=== PATIENT | male | born 1945 | race Caucasian/White ===

== ENCOUNTER → 2019-10-11 09:34 | Outpatient (CLI) | payer MEDICARE, SELFPAY ==
--- NOTE | 2019-10-11 09:42 | CDU_ITS ---
Reason For Study: Stenosis Rt. Velocities/BP Lt. Velocities/BP Prox CCA 130/19 cm/sec. Prox CCA 127/25 cm/sec. Mid CCA 111/20 cm/sec. Mid CCA 116/29 cm/sec. Dist CCA 97/23 cm/sec. Dist CCA 107/27 cm/sec. Prox ICA 80/23 cm/sec. Prox ICA 88/28 cm/sec. Mid ICA 126/40 cm/sec. Mid ICA 95/32 cm/sec. Dist ICA 123/39 cm/sec. Dist ICA 115/36 cm/sec. Rt. ICA/CCA = 1.1. Lt. ICA/CCA = 1.0. Prox ECA 140/7 cm/sec. Prox ECA 139/13 cm/sec. Rt. Vert. 71/16 cm/sec. Lt. Vert. 88/20 cm/sec. Right Extracranial There is intimal thickening but no significant atherosclerotic plaque noted in the right common carotid artery. There is heterogeneous, smooth atherosclerotic plaque noted in the right internal carotid artery. The right internal carotid artery is very tortuous. There is intimal thickening but no significant atherosclerotic plaque noted in the right external carotid artery. Antegrade flow is noted in the right vertebral artery. Left Extracranial There is intimal thickening but no significant atherosclerotic plaque noted in the left common carotid artery. There is heterogeneous, smooth atherosclerotic plaque noted in the left internal carotid artery. There is intimal thickening but no significant atherosclerotic plaque noted in the left external carotid artery. Antegrade flow is noted in the left vertebral artery. Procedure Carotid Duplex [id number]. Exam performed in department. Interpretation Summary Minimal smooth plaque at the proximal right internal carotid artery Very tortuous right internal carotid artery which may affect flow velocity and estimation of stenosis. 50-69% stenosis right internal carotid, (likely closer to 50%) Minimal smooth plaque at the proximal left internal carotid <50% stenosis left internal carotid <50% stenosis left external carotid Patent, antegrade, <50% stenosis bilateral vertebrals. Ordering Physician: Jorden Martinez Referring Physician: Jorden Martinez Performed By: Olivia Reeder, TIFFANY, RVT
== END ==
PROVIDERS: PCP Internal Medicine; Referring Provider Ophthalmology; Visit Provider Ophthalmology
DX: G45.3 Amaurosis fugax (principal)
CPT/HCPCS: 93880

== ENCOUNTER → 2023-05-18 | Outpatient (CLI) | payer MEDICARE, SELFPAY ==
--- NOTE | 2023-05-18 | PROSBIL_PTH ---
PATIENT: ROBERT ROSARIO LOC: [facility] U#:[id number] AGE/SX: 77/M ROOM: RE05/18/[address]: Dr. Paxton Otero MD : 1945 BED: DIS: 05/18/2023 SPEC #: [id number] RECD: 05/19/23 08:51 STATUS: DORIS REReza #: [id number] ELSA: 05/18/23 00:[address]: Paxton Otero DEPT: SURGICAL PATHOLOGY RECD BY: Bill Woodward ENTERED: 05/19/23 08:51 SP TYPE: PROST BX BISHOP DR: Dr. Antoine Cody MD Tissues: A - PROSTATE RIGHT B - PROSTATE RIGHT C - PROSTATE RIGHT D - PROSTATE LEFT E - PROSTATE LEFT F - PROSTATE LEFT Procedures: PROSTATE BX HEADER OPERATION: Prostate biopsy PRE-OP DIAGNOSIS: Elevated PSA TISSUE SUBMITTED: A - Right apex, B - Right mid, C - Right base, D - Left apex, E - Left mid, F - Left base MICROSCOPIC DIAGNOSIS A. Right prostate, apex, core biopsy: Benign prostatic tissue. B. Right prostate, mid, core biopsy: Focal chronic prostatitis. C. Right prostate, base, core biopsy: Benign prostatic tissue. D. Left prostate, apex, core biopsy: Focal high-grade prostatic intraepithelial neoplasia (HGPIN). E. Left prostate, mid, core biopsy: Focal glandular atrophy. F. Left prostate, base, core biopsy: Adenocarcinoma. Lonsdale grade: 7 (3+4) Cores involved: 2 out of 2 cores Tissue involved: 40% Greatest tumor length: 4 millimeters See comment. AM:cynthia 05/22/2023 COMMENT Immunohistochemistry ([id number]) supports the above diagnosis. Case has been reviewed in consultation with Dr. Chatman who concurs with the above diagnosis. IDC:[id number] MICROSCOPIC DESCRIPTION Slides are reviewed. GROSS DESCRIPTION A - Received is one container designated prostate, right apex. The specimen consists of two elongated fragments of light shankar-white soft tissue measuring 0.7 and 0.9 cm in length and 0.1 cm in diameter. The specimen is totally submitted in one cassette. B - Received is one container designated prostate, right mid. The specimen consists of two elongated fragments of light shankar-white soft tissue measuring 1.5 and 2.0 cm in length and 0.1 cm in diameter. The specimen is totally submitted in one cassette. C - Received is one container designated prostate, right base. The specimen consists of two elongated fragments of light shankar-white soft tissue each measuring 1.0 cm in length and 0.1 cm in diameter. The specimen is totally submitted in one cassette. D - Received is one container designated prostate, left apex. The specimen consists of two elongated fragments of light shankar-white soft tissue measuring 0.8 and 1.0 cm in length and 0.1 cm in diameter. The specimen is totally submitted in one cassette. E - Received is one container designated prostate, left mid. The specimen consists of one elongated fragment of light shankar-white soft tissue measuring 1.5 cm in length and 0.1 cm in diameter. The specimen is totally submitted in one cassette. F - Received is one container designated prostate, left base. The specimen consists of two elongated fragments of light shankar-white soft tissue each measuring 1.0 cm in length and 0.1 cm in diameter. The specimen is totally submitted in one cassette. / SJ:rg 05/19/2023 TC:0 CPT: G0146
--- NOTE | 2023-05-18 | IMM_PTH ---
PATIENT: ROBERT ROSARIO LOC: [facility] U#:[id number] AGE/SX: 77/M ROOM: RE05/18/[address]: Dr. Paxton Otero MD : 1945 BED: DIS: 05/18/2023 SPEC #: [id number] RECD: 05/22/23 14:14 STATUS: DORIS REQ #: [id number] ELSA: 05/18/23 00:[address]: Paxton Otero DEPT: IMMUNOHISTOCHEMISTRY RECD BY: Rowan Cox ENTERED: 05/22/23 14:15 SP TYPE: IMMUNO OTHR DR: Dr. Antoine Cody MD Tissues: F - PROSTATE LEFT Procedures: P40 (add) 34BE12 (initial) PHYSICIAN & INSTITUTION [place] [phone] SPECIMEN INFORMATION: Tissue Source: F - Left prostate base, core biopsy Clinical Info: Elevated PSA Specimen Number: [id number] CPT code: 19151, 76740 METHODOLOGY: Deparaffinized sections of prefer/formalin-fixed tissue or PAP/DQ stained slides are incubated with monoclonal/polyclonal antibodies/oligonucleotide probes. Localization is made via biotin free immunoperoxidase method. Appropriate controls are performed and reacted as expected. Results on target cell population are indicated in the following table: RESULTS: ANTIBODY / CLONE RESULT Block F P40 (BC28) negative 34BE12 (34BE12) negative These tests were developed and their performance characteristics determined by [facility]. They may not have been cleared or approved by the U.[place]. Food and Drug Administration. The FDA has determined that such clearance or approval is not necessary. The above immunohistochemical/dualISH markers are ordered and reviewed by the Pathologist. INTERPRETATION: Parker Left prostate base, core biopsy: Adenocarcinoma. AM:cynthia 05/24/2023
== END | disposition home or self-care (01) ==
PROVIDERS: PCP Internal Medicine; Referring Provider Urology; Visit Provider Urology
DX: C61 Malignant neoplasm of prostate (principal); N41.1 Chronic prostatitis
CPT/HCPCS: 88305; 88341; 88342; G0416

== ENCOUNTER → 2024-10-08 | Outpatient (CLI) | payer MEDICARE, SELFPAY ==
--- NOTE | 2024-10-08 11:02 | MRI_ITS ---
PROCEDURE: PELVIS W/WO CONTRAST REASON FOR EXAM: Positive prostate biopsy 1 year ago. Elevated PSA. TECHNIQUE: Multiplanar, multisequence MRI of the prostate was performed before and following intravenous gadolinium-based contrast. Axial, coronal, and sagittal high-resolution T2-weighted images, axial T1-weighted images, diffusion-weighted images with high B value, and dynamic postcontrast fat saturated T1-weighted images were performed. CONTRAST: 15 mL Clariscan intravenously. COMPARISON: None. FINDINGS: Prostate Volume: 33.5 mL (prostate measures 4.4 x 4.4 x 3.3 cm) Peripheral Zone: No abnormality on ADC and high b-value DWI. Transitional Zone: Typical BPH nodules. No suspicious lesions. Seminal vesicles: Normal and symmetric. Neurovascular bundles: Normal and symmetric. Lymph nodes: No lymphadenopathy is identified. Bone marrow: No suspicious lesions. Miscellaneous: Mild trabeculation of the urinary bladder which is otherwise unremarkable. Tiny fat containing left inguinal hernia. MRI/Pelvis W/WO Contrast IMPRESSION: No PI-RADS 3 or greater lesions identified. Normal peripheral zone. Reading Location: [facility]
== END | disposition home or self-care (01) ==
PROVIDERS: PCP Internal Medicine; Referring Provider Nurse Practitioner; Visit Provider Nurse Practitioner
DX: C61 Malignant neoplasm of prostate (principal)
CPT/HCPCS: 72197; A9575